=== PATIENT | male | born 1985 | race African-American/Black ===

== ENCOUNTER 2017-10-26 17:02 | Emergency (ER) | payer OTHER ==
[2017-10-26 17:14] VITALS: BP 160/95; PULSE 68; TEMP 98; BMI 25.0
[2017-10-26] MEDS ORDERED: TETANUS AND DIPHTHERIA TOXOID 0.5 ML DISP.SYRIN IM ONE (17:47)
[2017-10-26] MEDS ORDERED: DIPHTH,PERTUSS(ACELL),TET 0.5 ML DISP.SYRIN IM ONE (17:51)
--- NOTE | 2017-10-26 17:53 | PDOC ---
History of Present Illness - General Chief Complaint: Injury Stated Complaint: FINGER INJURY Time Seen by Provider: 10/26/17 17:41 History Source: Patient Exam Limitations: No Limitations (32y/o M R hand dominant p/w R 5th finger wound X 3 days) - History of Present Illness Timing/Duration: other (2 days ago) Past History - Travel Traveled outside of the country in the last 30 days: No Close contact w/someone who was outside of country & ill: No - Past Medical History Allergies/Adverse Reactions: Allergies Allergy/AdvReac Type Severity Reaction Status Date / Time No Known Allergies Allergy Verified 10/26/17 17:14 Home Medications: Ambulatory Orders Bacitracin - [Bacitracin Topical Ointment -] 1 applic TP DAILY 5 Days #30 gm COPD: No - Suicide/Smoking/Psychosocial Hx Smoking History: Never smoked Have you smoked in the past 12 months: No Information on smoking cessation initiated: No Hx Alcohol Use: No Drug/Substance Use Hx: No Substance Use Type: None, Marijuana Review of Systems - Review of Systems Is the patient limited Yi proficient: No Musculoskeletal: No: Joint Pain Integumentary: Yes: Other (wound to R 5th finger tip) *Physical Exam - Vital Signs Last Vital Signs Temp Pulse Resp BP Pulse Ox 98 F 68 16 160/95 100 10/26/17 17:04 10/26/17 17:04 10/26/17 17:04 10/26/17 17:04 10/26/17 17:04 - Physical Exam General Appearance: Yes: Nourished Extremity: positive: Normal Capillary Refill, Normal Range of Motion, Other (R 5th finger: + skin avulsion noted in finger pad,FROM) Neurologic: positive: staffing assistant II-XII NML intact, Fully Oriented, Alert Medical Decision Making - Medical Decision Making 10/26/17 17:47 32y/o M R hand dominant, p/w R 5th skin avulsion sustained when a metal while pushing a garbage cart at work 2 days ago, unsure of last tetanus vaccine PE: FROM, + skin avulsion noted in R 5th finger pad wound cleanse with betadine and saline, and dressed, tetanus updated s/s of infection discussed with pt 10/26/17 17:58 10/26/17 18:00 *DC/Admit/Observation/Transfer Diagnosis at time of Disposition: Avulsion of skin of hand Qualifiers: Encounter type: initial encounter Laterality: right Qualified Code(s): S61.401A - Unspecified open wound of right hand, initial encounter - Discharge Dispostion Disposition: HOME Condition at time of disposition: Stable Admit: No - Prescriptions Prescriptions: Bacitracin - [Bacitracin Topical Ointment -] 1 applic TP DAILY 5 Days #30 gm - Referrals Referrals: Za Roblero MD [Primary Care Provider] - - Patient Instructions Printed Discharge Instructions: Minor Wounds (Alternative Therapy), DI for Avulsion Laceration (Not Requiring Sutures) - Post Discharge Activity Forms/Work/School Notes: Back to Work
== END 2017-10-26 17:56 | disposition home or self-care (01) ==
LOC: JERFT 17:02
PROC: 3E0234Z Introduction of Serum, Toxoid and Vaccine into Muscle, Percutaneous Approach (ICD-10-PCS; principal; 2017-10-26)
DX: S61.401A Unspecified open wound of right hand, initial encounter (principal); W26.8XXA Contact with other sharp object(s), not elsewhere classified, initial encounter; Y93.H3 Activity, building and construction; Y92.69 Other specified industrial and construction area as the place of occurrence of the external cause; Y99.0 Civilian activity done for income or pay; S61.206A Unspecified open wound of right little finger without damage to nail, initial encounter
CPT/HCPCS: 90471; 90715; 99281-25

== ENCOUNTER 2017-12-12 19:38 | Emergency (ER) | payer OTHER ==
[2017-12-12] MEDS ORDERED: SODIUM CHLORIDE 0.9% 500 ML INFUS.BAG IV ONE ×2 (19:50→21:20)
[2017-12-12] MEDS ORDERED: KETOROLAC TROMETHAMINE 30 MG/1 ML VIAL IVPUSH ONE (19:50)
[2017-12-12 19:51] VITALS: BP 138/98; PULSE 69; TEMP 98.8; BMI 24.4
--- NOTE | 2017-12-12 19:52 | PDOC ---
Rapid Medical Evaluation Time Seen by Provider: 12/12/17 19:47 Medical Evaluation: Allergies Allergy/AdvReac Type Severity Reaction Status Date / Time No Known Allergies Allergy Verified 10/26/17 17:14 I have performed a brief in-person evaluation of this patient. The patient presents with a chief complaint of: supposed to have lithotripsy on 12/22 but right kidney stone started acting up today Pertinent physical exam findings: right flank pain I have ordered the following: labs, UA/culture, IV toradol, IV fluids The patient will proceed to the ED for further evaluation. Discharge Disposition - Diagnosis Right flank pain - Referrals - Patient Instructions - Post Discharge Activity
[2017-12-12] MEDS ORDERED: KETOROLAC TROMETHAMINE 30 MG/1 ML VIAL ONE (20:05)
[2017-12-12 20:13] LABS: EOS % 4.7 % (0-4.5); HEMATOCRIT 41.4 % (35.4-49); HEMOGLOBIN 13.9 GM/dL (11.7-16.9); LYMPH % 21.6 % (8-40); MCHC 33.5 g/dl (32.0-35.9); MEAN CELL VOLUME 89.5 fl (80-96); MEAN PLT VOLUME 8.8 fl (7.5-11.1); MONO % 7.8 % (3.8-10.2); NEUT % 64.9 % (42.8-82.8); PLATELET COUNT 227 K/MM3 (134-434); RBC 4.63 M/mm3 (4.00-5.60); RDW 13.8 % (11.9-15.9); WHITE BLOOD COUNT 8.9 K/mm3 (4.0-10.0)
[2017-12-12 20:47] LABS: ALBUMIN 3.6 g/dl (3.4-5.0); ALK PHOS 71 U/L (45-117); ANION GAP 6 (8-16); BILIRUBIN,TOTAL 0.3 mg/dL (0.2-1.0); BLOOD UREA NITROGEN 16 mg/dL (7-18); CALCIUM 8.4 mg/dL (8.5-10.1); CHLORIDE 109 mmol/L (98-107); CO2 29 mmol/L (21-32); CREATININE 1.3 mg/dL (0.7-1.3); GLUCOSE,RANDOM 118 mg/dL (74-106); POTASSIUM 3.7 mmol/L (3.5-5.1); SGOT/AST 46 U/L (15-37); SGPT/ALT 34 U/L (12-78); SODIUM 144 mmol/L (136-145); TOT PROT 6.5 g/dl (6.4-8.2)
[2017-12-12 20:58] LABS: URINE APPEARANCE CLEAR; URINE BILIRUBIN NEGATIVE (<2.0 mg/dL); URINE COLOR YELLOW; URINE GLUCOSE (UA) NEGATIVE (NEGATIVE); URINE KETONE NEGATIVE (NEGATIVE); URINE NITRITE NEGATIVE (NEGATIVE); URINE UROBILINOGEN 4.0 E.U/dl mg/dL (0.2-1.0)
[2017-12-12 21:01] LABS: URINE LEUK ESTERASE 1+ (NEGATIVE); URINE PROTEIN 1+ (NEGATIVE)
--- NOTE | 2017-12-12 21:02 | PDOC ---
History of Present Illness - General Chief Complaint: Pain, Acute Stated Complaint: PAIN Time Seen by Provider: 12/12/17 19:47 - History of Present Illness Initial Comments: 12/12/17 21:22 The patient is a 32 year old male with a history of kidney stones who presents for evaluation of right flank pain. The patient reports that he has known stone on the right side and was schedule for lithotripsy on 12/22/17 at [facility]. However, he reported worsening right flank pain today prompting his presentation to the ED for further evaluation. He notes that he lives in [place] and would like to follow with physicians here in [place]. He otherwise denies fevers, chills, SOB, chest pain, nausea, vomiting, abdominal pain, or changes with urination or bowel movements. Past History - Past Medical History Allergies/Adverse Reactions: Allergies Allergy/AdvReac Type Severity Reaction Status Date / Time No Known Allergies Allergy Verified 10/26/17 17:14 Home Medications: Ambulatory Orders Bacitracin - [Bacitracin Topical Ointment -] 1 applic TP DAILY 5 Days #30 gm Tamsulosin HCl [Flomax] 0.4 mg PO DAILY #14 capsule 12/12/17 COPD: No Kidney Stones: Yes - Suicide/Smoking/Psychosocial Hx Smoking History: Current every day smoker Have you smoked in the past 12 months: Yes Number of Cigarettes Smoked Daily: 20 Information on smoking cessation initiated: No Hx Alcohol Use: No Drug/Substance Use Hx: Yes Substance Use Type: Marijuana Review of Systems - Review of Systems Comments:: 12/12/17 21:24 Constitutional: No fevers, chills, fatigue, malaise HEENT: No Rhinorrhea, nasal congestion, visual changes Cardiovascular: No chest pain, syncope, palpitations, lightheadedness Respiratory: No Cough, SOB, Hemoptysis, Gastrointestinal: No Abdominal pain, Nausea, Vomiting, Constipation, Diarrhea, Melena Genitourinary: Right Flank Pain, Hematuria. No Dysuria, Frequency, Urgency, Hesitancy, Musculoskeletal: No Myalgia, arthralgia Skin: No rashes, itching, bruising, pallor Neurologic: No Headache, Dizziness, Numbness, Weakness, or Tingling Psychiatric: No Hallucinations. No SI or HI *Physical Exam - Vital Signs Last Vital Signs Temp Pulse Resp BP Pulse Ox 98.8 F 69 16 138/98 100 12/12/17 19:48 12/12/17 19:48 12/12/17 19:48 12/12/17 19:48 12/12/17 19:48 - Physical Exam Comments: 12/12/17 21:24 General Appearance: Nourished. No Apparent Distress HEENT: No Pharyngeal Erythema, Tonsillar Exudate, Tonsillar Erythema Neck: No Cervical Lymphadenopathy Respiratory/Chest: Lungs Clear, Normal Breath Sounds. No Crackles, Rales, Rhonchi, Wheezing Cardiovascular: Regular Rhythm, Regular Rate. No Murmur, Gallops, Rubs Gastrointestinal/Abdominal: Normal Bowel Sounds, Soft. No Guarding, Rebound, Tenderness Musculoskeletal: No CVA Tenderness Extremity: Normal Capillary Refill Integumentary: Normal Color, Dry, Warm Neurologic: Fully Oriented, Alert, Normal Mood/Affect, Normal Response, ED Treatment Course - LABORATORY CBC & Chemistry Diagram: 12/12/17 20:04 12/12/17 20:04 - ADDITIONAL ORDERS Additional order review: Laboratory Results 12/12/17 12/12/17 20:30 20:04 Sodium 144 Potassium 3.7 Chloride 109 H Carbon Dioxide 29 Anion Gap 6 L BUN 16 Creatinine 1.3 Creat Clearance w eGFR > 60 Random Glucose 118 H Calcium 8.4 L Total Bilirubin 0.3 AST 46 H ALT 34 Alkaline Phosphatase 71 Total Protein 6.5 Albumin 3.6 Urine Color Yellow Urine Appearance Clear Urine pH 5.0 Ur Specific [place] 1.025 Urine Protein 1+ H Urine Glucose (UA) Negative Urine Ketones Negative Urine Blood 3+ H Urine Nitrite Negative Urine Bilirubin Negative Urine Urobilinogen 4.0 e.u/dl Ur Leukocyte Esterase 1+ H 12/12/17 20:04 RBC 4.63 MCV 89.5 MCHC 33.5 RDW 13.8 MPV 8.8 Neutrophils % 64.9 Lymphocytes % 21.6 Monocytes % 7.8 Eosinophils % 4.7 H Basophils % 1.0 - Medications Given in the ED: ED Medications Discontinued Medications Generic Name Dose Route Start Last Admin Trade Name Freq PRN Reason Stop Dose Admin Ketorolac Tromethamine 30 mg 12/12/17 19:50 12/12/17 20:02 Toradol Injection - IVPUSH 12/12/17 19:51 30 mg ONCE ONE Administration Sodium Chloride 1,000 ml 12/12/17 19:50 12/12/17 20:02 Normal Saline - IV 12/12/17 19:51 1,000 ml ONCE ONE Administration Medical Decision Making - Medical Decision Making 12/12/17 21:24 The patient is a 32 year old male with a history of kidney stones who presents for evaluation of right flank pain. Differential includes but is not limited to : Kidney Stone, UTI, Pyelonephritis, infectious, metabolic derangement. Labs obtained in triage including a cbc, cmp were unremarkable. UA demonstrated RBC in the urine. CT scan obtained demonstrates a 4mm and 2mm stone on the right side as read by our radiologist. Given the patient's results, it is likely his symptoms are due to kidney stones. The patient reports improvement in his symptoms with toradol and iv fluids so far. We will continue to treat with iv fluids and flomax and continue to monitor and reassess. 12/12/17 22:43 The patient reports improvement in his symptoms. We are comfortable discharging the patient home at this time with primary care provider and urology follow up. We discussed the results, plan, and return precautions with the patient who voiced understanding and is agreeable with the plan. *DC/Admit/Observation/Transfer Diagnosis at time of Disposition: Right flank pain, Kidney stone - Discharge Dispostion Disposition: HOME Condition at time of disposition: Stable Decision to Admit order: No - Prescriptions Prescriptions: Tamsulosin HCl [Flomax] 0.4 mg PO DAILY #14 capsule - Referrals Referrals: John Christianson MD [Staff Physician] - Young Byrne MD., MD [Staff Physician] - - Patient Instructions Printed Discharge Instructions: DI for Kidney Stones Additional Instructions: Please return to the ER if you experience concerning or worsening symptoms including worsening pain, fevers, or vomiting. Your lab results and CT scans show a 4mm and 2mm kidney stones on the right side. We have sent a prescription for Flomax to your pharmacy that you should take as directed. Please call to schedule a follow up appointment with a primary care provider (Dr. Christianson) and our urologist (Dr. Byrne) within 2-3 days to discuss your ER visit and further management of your symptoms. - Post Discharge Activity Forms/Work/School Notes: Back to Work
[2017-12-12 21:03] LABS: URINE MUCUS FEW
[2017-12-12] MEDS ORDERED: TAMSULOSIN HCL 0.4 MG CAP.ER.24H (FP) PO ONE (21:19)
[2017-12-12] MEDS ORDERED: TAMSULOSIN HCL 0.4 MG CAP.ER.24H (FP) ONE (21:22)
--- NOTE | 2017-12-12 23:24 | PDOC ---
Attending Attestation - Resident Resident Name: Mark Hooper - ED Attending Attestation I have performed the following: I have examined & evaluated the patient, The case was reviewed & discussed with the resident, I agree w/resident's findings & plan - HPI HPI: 12/12/17 23:22 Pt comes with flank pain on the right side. He has known kidney stones. - Physicial Exam PE: 12/12/17 23:23 Agree with resident exam. Pt appears comfortable. VSS. Afebrile. - Medical Decision Making 12/12/17 23:23 Pt has a 2m and a 4mm stone. He was treated in the ER with 2 L NSS and with flomax. He will be asked to follow with our docs, as pt wants to switch his docs up to [facility]. 12/12/17 23:24 We will not treat with ABX at this time. Pt has some WBC and leukocytes, but plenty more RBC, and this is all likely due to the damage from the stone.
== END 2017-12-12 23:30 | disposition home or self-care (01) ==
LOC: JER 19:38
PROC: 3E0333Z Introduction of Anti-inflammatory into Peripheral Vein, Percutaneous Approach (ICD-10-PCS; principal; 2017-12-12)
DX: N20.0 Calculus of kidney (principal); Z87.442 Personal history of urinary calculi
CPT/HCPCS: 36415; 74176; 80053; 81003; 81015; 85025; 87086; 96374; 99283-25

== ENCOUNTER 2020-03-24 20:15 | Emergency (ER) | payer OTHER ==
[2020-03-24 20:21] VITALS: TEMP 98; BMI 24.7
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
[2020-03-24] MEDS ORDERED: ACETAMINOPHEN 325 MG TABLET (FP) PO ONE (22:39)
[2020-03-24 22:40] VITALS: BP 152/77; PULSE 65
[2020-03-24] MEDS ORDERED: ACETAMINOPHEN 325 MG TABLET (FP) ONE (22:44)
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
== END 2020-03-24 23:20 | disposition home or self-care (01) ==
LOC: JER 20:15
DX: S06.0X0D Concussion without loss of consciousness, subsequent encounter (principal)
CPT/HCPCS: 99284-25

== ENCOUNTER 2020-12-06 04:56 | Emergency (ER) | payer OTHER ==
[2020-12-06 05:31] VITALS: TEMP 98.2; BMI 23.5
[2020-12-06] MEDS ORDERED: CLINDAMYCIN HCL 300 MG CAPSULE PO ONE (05:38)
[2020-12-06 05:45] VITALS: BP 160/99; PULSE 79
[2020-12-06] MEDS ORDERED: CLINDAMYCIN HCL 150 MG CAPSULE (FP) ONE (05:46)
== END 2020-12-06 05:47 | disposition home or self-care (01) ==
LOC: JER 04:56
DX: G89.18 Other acute postprocedural pain (principal)
CPT/HCPCS: 99283-25

== ENCOUNTER 2021-12-04 10:17 | Emergency (ER) | payer OTHER ==
[2021-12-04 10:31] VITALS: TEMP 97.6; BMI 24.5
[2021-12-04] MEDS ORDERED: SODIUM CHLORIDE 1,000 ML IV STA (10:39)
[2021-12-04] MEDS ORDERED: ONDANSETRON 4 MG/2 ML VIAL IVPUSH ONE (10:47)
[2021-12-04] MEDS ORDERED: ONDANSETRON 4 MG/2 ML VIAL ONE (10:52)
[2021-12-04] MEDS ORDERED: FAMOTIDINE 20 MG/50 ML IVPB 20 MG/50 ML MG IVPB ONE ×2 (11:05→11:51)
[2021-12-04 12:13] LABS: BASO % 0.8 % (0-2.0); EOS % 6.6 % (0-4.5); HEMATOCRIT 40.9 % (35.4-49); HEMOGLOBIN 13.4 GM/dL (11.7-16.9); LYMPH % 29.2 % (8-40); MCH 29.8 pg (25.7-33.7); MCHC 32.7 g/dl (32.0-35.9); MEAN CELL VOLUME 91.2 fl (80-96); MEAN PLT VOLUME 8.8 fl (7.5-11.1); NEUT % 56.4 % (42.8-82.8); PLATELET COUNT 201 10^3/uL (134-434); RBC 4.48 M/mm3 (4.00-5.60); RDW 13.3 % (11.9-15.9); WHITE BLOOD COUNT 7.3 K/mm3 (4.0-10.0)
[2021-12-04 12:33] LABS: CALCIUM 8.9 mg/dL (8.5-10.1)
[2021-12-04 12:34] LABS: ALBUMIN 3.5 g/dl (3.4-5.0); BLOOD UREA NITROGEN 16.8 mg/dL (7-18)
[2021-12-04 12:37] LABS: CREATININE 1.2 mg/dL (0.55-1.3)
[2021-12-04 12:38] LABS: BILIRUBIN,TOTAL 0.6 mg/dL (0.2-1)
[2021-12-04 12:39] LABS: TOT PROT 6.2 g/dl (6.4-8.2)
[2021-12-04 13:20] VITALS: BP 158/96; PULSE 62
== END 2021-12-04 13:00 | disposition home or self-care (01) ==
LOC: JER 10:17
PROC: 3E033GC Introduction of Other Therapeutic Substance into Peripheral Vein, Percutaneous Approach (ICD-10-PCS; principal; 2021-12-04)
PROC: 3E033GC Introduction of Other Therapeutic Substance into Peripheral Vein, Percutaneous Approach (ICD-10-PCS; 2021-12-04)
PROC: 3E0337Z Introduction of Electrolytic and Water Balance Substance into Peripheral Vein, Percutaneous Approach (ICD-10-PCS; 2021-12-04)
DX: K52.9 Noninfective gastroenteritis and colitis, unspecified (principal)
CPT/HCPCS: 36415; 80053; 83690; 85025; 93005; 93010; 99284-25

== ENCOUNTER 2022-09-18 19:11 | Emergency (ER) | payer OTHER ==
[2022-09-18 19:22] VITALS: RESP 18; TEMP 98.1; BMI 23.8
[2022-09-18] MEDS ORDERED: KETOROLAC TROMETHAMINE 15 MG/ML VIAL IM ONE (20:19)
[2022-09-18] MEDS ORDERED: LIDOCAINE 5% TOPICAL PATCH TP ONE (20:19)
[2022-09-18] MEDS ORDERED: ACETAMINOPHEN 500 MG TABLET (FP) PO ONE (20:29)
[2022-09-18] MEDS ORDERED: LIDOCAINE 5% TOPICAL PATCH ONE (21:02)
[2022-09-18] MEDS ORDERED: ACETAMINOPHEN 325 MG TABLET (FP) ONE (21:02)
[2022-09-18 21:40] LABS: BASO % 1.3 % (0-2.0); EOS % 3.8 % (0-4.5); HEMOGLOBIN 14.2 GM/dL (11.7-16.9); LYMPH % 30.4 % (8-40); MCH 30.9 pg (25.7-33.7); MCHC 34.5 g/dl (32.0-35.9); MEAN CELL VOLUME 89.6 fl (80-96); MEAN PLT VOLUME 8.6 fl (7.5-11.1); MONO % 6.4 % (3.8-10.2); NEUT % 58.1 % (42.8-82.8); PLATELET COUNT 229 10^3/uL (134-434); RBC 4.58 M/mm3 (4.00-5.60); RDW 13.4 % (11.9-15.9); WHITE BLOOD COUNT 10.6 K/mm3 (4.0-10.0)
[2022-09-18 21:44] LABS: EPI CELLS 6 /uL (0-25.1); HYALINE CASTS 1 /uL (0-3.1); PH,URINE 5.5 (5.0-8.0); URINE APPEARANCE CLEAR; URINE BACTERIA 3 /uL (0-1359); URINE BILIRUBIN NEGATIVE (NEGATIVE); URINE COLOR YELLOW; URINE GLUCOSE (UA) NEGATIVE (NEGATIVE); URINE KETONE TRACE (NEGATIVE); URINE LEUK ESTERASE NEGATIVE (NEGATIVE); URINE NITRITE NEGATIVE (NEGATIVE); URINE PROTEIN 1+ (NEGATIVE); URINE RBC 23 /uL (0-23.9); URINE WBC 34 /uL (0-25.8)
[2022-09-18] MEDS ORDERED: LIDOCAINE PATCH REMOVAL MC SCH (22:00)
[2022-09-18 22:31] LABS: BLOOD UREA NITROGEN 23.2 mg/dL (7-18); MAGNESIUM 2.3 mg/dL (1.8-2.4)
[2022-09-18 22:33] LABS: ACTIVATED PTT 33.6 SECONDS (25.2-36.5); INR 1.03 (0.83-1.09)
[2022-09-18 22:34] LABS: CREATININE 1.2 mg/dL (0.55-1.3)
[2022-09-18 22:36] LABS: BILIRUBIN,TOTAL 0.6 mg/dL (0.2-1); TOT PROT 6.9 g/dl (6.4-8.2)
[2022-09-19 00:38] VITALS: BP 145/89; PULSE 75
== END 2022-09-19 00:39 | disposition home or self-care (01) ==
LOC: JER 19:11
DX: M54.9 Dorsalgia, unspecified (principal); X50.0XXA Overexertion from strenuous movement or load, initial encounter; Z20.822 Contact with and (suspected) exposure to COVID-19
CPT/HCPCS: 0241U-QW; 36415; 71275-TC; 80053; 81003; 83735; 84484; 85025; 85610; 85730; 93005; 93010; 99285-25; Q9967